=== PATIENT | male | born 1965 | race Caucasian/White ===

== ENCOUNTER 2024-01-11 13:05 | Inpatient (IN) | payer OTHER ==
[~2024-01-11] VITALS: Ht 172.7 cm; Wt 79.4 kg
[2024-01-14 16:35] VITALS: BP 142/83; PULSE 63; RESP 18; TEMP 98.3
[2024-01-14 19:39] LABS: APPEARANCE,URINE CLEAR (CLEAR); BILIRUBIN,URINE NEGATIVE (NEGATIVE); COLOR,URINE LIGHT YELLOW (YELLOW); GLUCOSE, URINE (UA) NEGATIVE (NEGATIVE); KETONES,URINE NEGATIVE (NEGATIVE); LEUKOCYTE ESTERASE ,URINE NEGATIVE (NEGATIVE); NITRATE,URINE NEGATIVE (NEGATIVE); OCCULT BLOOD,URINE NEGATIVE (NEGATIVE); PH,URINE 6.5 (5.0-8.0); PROTEIN,URINE NEGATIVE (NEGATIVE); SPECIFIC GRAVITIY, URINE 1.014 (1.003-1.030); UROBILINOGEN,URINE <=1.0 mg/dL (<=1.0)
[2024-01-14 20:04] LABS: BACTERIA,URINE None Seen /HPF (None Seen); RBC,URINE None Seen /HPF (0-2); WBC,URINE None Seen /HPF (0-5)
[2024-01-14 21:00] VITALS: BP 118/81; PULSE 66; RESP 18; TEMP 98; O2SAT 97
[2024-01-14] MEDS: -LIDODERM PATCH NOTE- MISC SCH (21:00)
[2024-01-14] MEDS: GABAPENTIN 300 MG CAPSULE PO SCH (21:54)
[2024-01-14] MEDS: TraZODone HCL 50 MG TABLET PO SCH (21:54)
[2024-01-14] MEDS: SENNOSIDES 8.6 MG TABLET PO SCH (21:54)
[2024-01-14] MEDS: 0.9% SODIUM CHLORIDE 10 ML SYRINGE IVP SCH (21:54)
[2024-01-14] MEDS: VANCOMYCIN 1GM/WATER(PEG/NADA) 200 ML IV SCH (21:54)
[2024-01-14] MEDS: TAMSULOSIN HCL 0.4 MG CAPSULE PO SCH (21:54)
[2024-01-14] MEDS: DOCUSATE SODIUM 100 MG CAPSULE PO SCH (21:55)
[2024-01-14] MEDS: ETHYL ALCOHOL 62% ANTISEPTIC NASAL SANITIZER 0.6 ML AMPUL NASAL SCH (21:55)
[2024-01-14] MEDS: CHLORHEXIDINE GLUCONATE 4% 118 ML TOPICAL LIQUID TP SCH (21:55)
[2024-01-15] MEDS: ACETAMINOPHEN 325 MG TABLET PO SCH (00:31)
[2024-01-15 00:48] VITALS: O2SAT 97
[2024-01-15 06:49] LABS: BASOPHILS % (AUTO) 0.8 % (0.0-2.0); EOSINOPHILS % (AUTO) 4.3 % (1.0-6.0); HEMATOCRIT 36.9 % (41-53); HEMOGLOBIN 12.3 g/dL (13.5-17.5); LYMPHOCYTES % (AUTO) 42.1 % (22.0-44.0); MEAN CORPUSCULAR HGB CONC 33.4 G/dL (31.0-37.0); MEAN CORPUSCULAR VOLUME 93 fL (80-100); MONOCYTES # (AUTO) 0.4 K/uL (0.1-1.0); MONOCYTES % (AUTO) 8.9 % (2.0-9.0); NEUTROPHILS # (AUTO) 2.1 K/uL (1.8-7.7); NEUTROPHILS % (AUTO) 43.9 % (40.0-70.0); PLATELET COUNT (AUTO) 261 K/uL (150-450); RED BLOOD CELL COUNT(AUTO) 3.97 MIL/uL (4.50-5.90); WHITE BLOOD COUNT (AUTO) 4.8 K/uL (4.5-11.0)
[2024-01-15 07:08] LABS: ALANINE AMINOTRANSFERASE 21 U/L (12-78); ALBUMIN 2.9 g/dL (3.4-5.0); ALKALINE PHOSPHATASE 107 U/L (46-116); ANION GAP 9 mmol/L (8-16); ASPARTATE AMINOTRANSFERASE 20 U/L (15-37); BILIRUBIN,TOTAL 0.6 mg/dL (0.1-1.0); CALCIUM, TOTAL 9.6 mg/dL (8.8-10.5); CARBON DIOXIDE 26 mmol/L (22-29); CHLORIDE 104 mmol/L (98-107); CREATININE 0.68 mg/dL (0.60-1.30); GLOMERULAR FILTR. RATE CALC > 60 mL/min (>60); GLUCOSE,RANDOM 97 mg/dL (70-110); POTASSIUM 3.8 mmol/L (3.5-5.1); SODIUM SERUM 139 mmol/L (136-145); TOTAL PROTEIN, SERUM 7.5 g/dL (6.4-8.2); UREA NITROGEN, BLOOD 14 mg/dL (7-18)
[2024-01-15 07:50] LABS: GLUCOMETER DEV NAME(LOC) 2WR.1D; GLUCOSE,POINT OF CARE 97 MG/DL (70-110)
[2024-01-15] MEDS: MULTIVITAMINS WITH MINERALS, THERAPEUTIC TABLET PO SCH (08:03)
[2024-01-15] MEDS: ENOXAPARIN SODIUM 40 MG/0.4 ML PF SYRINGE SQ SCH (08:03)
[2024-01-15] MEDS: LOSARTAN POTASSIUM 25 MG TABLET PO SCH (08:04)
[2024-01-15] MEDS: MetFORMIN HCL 500 MG TABLET PO SCH (08:04)
[2024-01-15] MEDS: VITAMIN E 200 UNIT PO SCH (08:04)
[2024-01-15] MEDS: ZINC SULFATE 220 MG CAPSULE PO SCH (08:04)
[2024-01-15 08:05] VITALS: BP 122/77; PULSE 54; RESP 19; TEMP 98.2; O2SAT 97
[2024-01-15] MEDS: POLYETHYLENE GLYCOL 3350 17 GM PACKET PO SCH (08:07)
[2024-01-15] MEDS: LIDOCAINE 5% TRANSDERMAL PATCH TD SCH (08:14)
[2024-01-15 09:41] VITALS: O2SAT 97
[2024-01-15 17:46] LABS: GLUCOMETER DEV NAME(LOC) 2WR.2B; GLUCOSE,POINT OF CARE 95 MG/DL (70-110)
[2024-01-15 20:00] VITALS: BP 132/86; PULSE 58; RESP 18; TEMP 98.1; O2SAT 98
[2024-01-15] MEDS: MELATONIN 5 MG TABLET PO PRN (20:54)
[2024-01-15 21:47] VITALS: O2SAT 98
[2024-01-16] MEDS ORDERED: METF-1211 PO (05:42)
[2024-01-16] MEDS ORDERED: DOCU-385 PO (05:44)
[2024-01-16] MEDS ORDERED: LOSA-381 PO (05:45)
[2024-01-16] MEDS ORDERED: [UNRECOGNIZED DRUG - CODE] PO (06:09)
[2024-01-16] MEDS ORDERED: GABA-1181 PO (06:09)
[2024-01-16] MEDS ORDERED: ZINC50CA3 PO (06:09)
[2024-01-16] MEDS ORDERED: MULT-248 PO (06:09)
[2024-01-16 06:56] LABS: GLUCOMETER DEV NAME(LOC) 2WR.1D; GLUCOSE,POINT OF CARE 87 MG/DL (70-110)
[2024-01-16 08:00] VITALS: BP 129/88; PULSE 62; RESP 18; TEMP 98; O2SAT 98
[2024-01-16 08:15] LABS: ANION GAP 8 mmol/L (8-16); CALCIUM, TOTAL 9.9 mg/dL (8.8-10.5); CARBON DIOXIDE 26 mmol/L (22-29); CHLORIDE 104 mmol/L (98-107); CREATININE 0.63 mg/dL (0.60-1.30); GLOMERULAR FILTR. RATE CALC > 60 mL/min (>60); GLUCOSE,RANDOM 99 mg/dL (70-110); SODIUM SERUM 138 mmol/L (136-145); UREA NITROGEN, BLOOD 11 mg/dL (7-18); VANCOMYCIN,RANDOM 17.5 mcg/mL (25.0-50.0)
[2024-01-16 17:16] LABS: GLUCOMETER DEV NAME(LOC) 2WR.1D; GLUCOSE,POINT OF CARE 76 MG/DL (70-110)
[2024-01-16 20:00] VITALS: BP 136/76; PULSE 55; RESP 18; TEMP 97.7; O2SAT 98
[2024-01-17 08:00] VITALS: BP 123/78; PULSE 56; RESP 18; TEMP 97.8; O2SAT 98
[2024-01-17 08:08] LABS: ANION GAP 7 mmol/L (8-16); CALCIUM, TOTAL 9.8 mg/dL (8.8-10.5); CARBON DIOXIDE 27 mmol/L (22-29); CHLORIDE 104 mmol/L (98-107); CREATININE 0.66 mg/dL (0.60-1.30); GLOMERULAR FILTR. RATE CALC > 60 mL/min (>60); GLUCOSE,RANDOM 97 mg/dL (70-110); POTASSIUM 3.9 mmol/L (3.5-5.1); SODIUM SERUM 138 mmol/L (136-145); UREA NITROGEN, BLOOD 13 mg/dL (7-18)
[2024-01-17 20:00] VITALS: O2SAT 98
[2024-01-17 23:50] VITALS: TEMP 98
[2024-01-18 07:51] LABS: ANION GAP 7 mmol/L (8-16); CALCIUM, TOTAL 9.8 mg/dL (8.8-10.5); CARBON DIOXIDE 29 mmol/L (22-29); CHLORIDE 104 mmol/L (98-107); CREATININE 0.66 mg/dL (0.60-1.30); GLOMERULAR FILTR. RATE CALC > 60 mL/min (>60); GLUCOSE,RANDOM 100 mg/dL (70-110); SODIUM SERUM 140 mmol/L (136-145); UREA NITROGEN, BLOOD 15 mg/dL (7-18); VANCOMYCIN,RANDOM 15.5 mcg/mL (25.0-50.0)
[2024-01-18 08:00] VITALS: BP 117/77; PULSE 61; RESP 18; TEMP 97.6; O2SAT 98
[2024-01-18 10:08] LABS: BASOPHILS % (AUTO) 0.5 % (0.0-2.0); EOSINOPHILS % (AUTO) 4.2 % (1.0-6.0); HEMATOCRIT 39.9 % (41-53); HEMOGLOBIN 12.8 g/dL (13.5-17.5); LYMPHOCYTES # (AUTO) 1.9 K/uL (1.0-4.8); LYMPHOCYTES % (AUTO) 38.8 % (22.0-44.0); MEAN CORPUSCULAR HEMOGLOBIN 30.1 pg (26.0-34.0); MEAN CORPUSCULAR HGB CONC 32.1 G/dL (31.0-37.0); MEAN CORPUSCULAR VOLUME 94 fL (80-100); MONOCYTES # (AUTO) 0.4 K/uL (0.1-1.0); MONOCYTES % (AUTO) 8.9 % (2.0-9.0); NEUTROPHILS # (AUTO) 2.3 K/uL (1.8-7.7); NEUTROPHILS % (AUTO) 47.6 % (40.0-70.0); PLATELET COUNT (AUTO) 253 K/uL (150-450); RED BLOOD CELL COUNT(AUTO) 4.26 MIL/uL (4.50-5.90); WHITE BLOOD COUNT (AUTO) 4.9 K/uL (4.5-11.0)
[2024-01-18 10:10] LABS: ERYTHROCYTE SEDIMENTATION RATE 49 MM/HR (0-20)
[2024-01-18 10:18] LABS: ALANINE AMINOTRANSFERASE 21 U/L (12-78); ALBUMIN 3.1 g/dL (3.4-5.0); ALKALINE PHOSPHATASE 113 U/L (46-116); ASPARTATE AMINOTRANSFERASE 19 U/L (15-37); BILIRUBIN,TOTAL 0.6 mg/dL (0.1-1.0); TOTAL PROTEIN, SERUM 7.8 g/dL (6.4-8.2)
[2024-01-18 20:12] VITALS: BP 144/81; PULSE 53; RESP 18; TEMP 97.9; O2SAT 99
[2024-01-18] MEDS ORDERED: SODIUM CHLORIDE 0.9% 250 ML IV ONE (20:26)
[2024-01-18 21:02] VITALS: O2SAT 99
[2024-01-19] MEDS: PNEUMOCOCCAL VACCINE POLYVALENT 0.5 ML SYRINGE [PPSV23] IM. ONE (06:00)
[2024-01-19 08:00] VITALS: BP 122/81; PULSE 58; RESP 18; TEMP 97.8; O2SAT 97
[2024-01-19 20:01] VITALS: BP 127/82; PULSE 63; RESP 18; TEMP 97.8; O2SAT 97
[2024-01-19] MEDS: OxyCODONE HCL 5 MG IR TABLET PO PRN (20:25)
[2024-01-20 00:50] VITALS: O2SAT 97
[2024-01-20 08:00] VITALS: BP 94/76; PULSE 88; RESP 18; TEMP 98.4; O2SAT 96
[2024-01-20 08:45] VITALS: BP 103/69; PULSE 84; RESP 18
[2024-01-20 20:00] VITALS: BP 122/75; PULSE 64; RESP 18; TEMP 98; O2SAT 98
[2024-01-21 06:54] LABS: BASOPHILS % (AUTO) 0.9 % (0.0-2.0); EOSINOPHILS % (AUTO) 2.1 % (1.0-6.0); HEMATOCRIT 38.4 % (41-53); HEMOGLOBIN 12.9 g/dL (13.5-17.5); LYMPHOCYTES # (AUTO) 1.4 K/uL (1.0-4.8); LYMPHOCYTES % (AUTO) 17.3 % (22.0-44.0); MEAN CORPUSCULAR HEMOGLOBIN 31.2 pg (26.0-34.0); MEAN CORPUSCULAR HGB CONC 33.5 G/dL (31.0-37.0); MEAN CORPUSCULAR VOLUME 93 fL (80-100); MONOCYTES # (AUTO) 0.8 K/uL (0.1-1.0); MONOCYTES % (AUTO) 9.8 % (2.0-9.0); NEUTROPHILS # (AUTO) 5.5 K/uL (1.8-7.7); NEUTROPHILS % (AUTO) 69.9 % (40.0-70.0); PLATELET COUNT (AUTO) 203 K/uL (150-450); RED BLOOD CELL COUNT(AUTO) 4.13 MIL/uL (4.50-5.90); RED CELL DISTRIBUTION WIDTH 15.9 % (11.5-14.5); WHITE BLOOD COUNT (AUTO) 7.9 K/uL (4.5-11.0)
[2024-01-21 07:17] LABS: ANION GAP 9 mmol/L (8-16); CALCIUM, TOTAL 9.4 mg/dL (8.8-10.5); CARBON DIOXIDE 25 mmol/L (22-29); CHLORIDE 103 mmol/L (98-107); CREATININE 0.61 mg/dL (0.60-1.30); GLOMERULAR FILTR. RATE CALC > 60 mL/min (>60); GLUCOSE,RANDOM 107 mg/dL (70-110); POTASSIUM 3.8 mmol/L (3.5-5.1); SODIUM SERUM 137 mmol/L (136-145); UREA NITROGEN, BLOOD 14 mg/dL (7-18); VANCOMYCIN,RANDOM 13.2 mcg/mL (25.0-50.0)
[2024-01-21 08:00] VITALS: BP 115/83; PULSE 78; RESP 19; TEMP 98.3; O2SAT 98
[2024-01-21 16:49] VITALS: BP 119/75; PULSE 90; RESP 18; TEMP 99.4; O2SAT 97
[2024-01-21 18:45] VITALS: TEMP 98.8
[2024-01-21 20:00] VITALS: BP 115/79; PULSE 88; RESP 18; TEMP 99.9; O2SAT 96
[2024-01-21 23:48] VITALS: TEMP 100.3
[2024-01-22 03:02] VITALS: TEMP 98
[2024-01-22 09:00] VITALS: BP 112/64; PULSE 76; RESP 18; TEMP 98.1; O2SAT 98
[2024-01-22 09:35] LABS: BASOPHILS % (AUTO) 0.3 % (0.0-2.0); EOSINOPHILS % (AUTO) 1.7 % (1.0-6.0); HEMATOCRIT 38.8 % (41-53); HEMOGLOBIN 12.8 g/dL (13.5-17.5); LYMPHOCYTES # (AUTO) 1.7 K/uL (1.0-4.8); LYMPHOCYTES % (AUTO) 25.2 % (22.0-44.0); MEAN CORPUSCULAR HEMOGLOBIN 30.4 pg (26.0-34.0); MEAN CORPUSCULAR HGB CONC 33.1 G/dL (31.0-37.0); MEAN CORPUSCULAR VOLUME 92 fL (80-100); MONOCYTES # (AUTO) 0.8 K/uL (0.1-1.0); MONOCYTES % (AUTO) 11.2 % (2.0-9.0); NEUTROPHILS # (AUTO) 4.2 K/uL (1.8-7.7); NEUTROPHILS % (AUTO) 61.6 % (40.0-70.0); PLATELET COUNT (AUTO) 213 K/uL (150-450); RED BLOOD CELL COUNT(AUTO) 4.22 MIL/uL (4.50-5.90); RED CELL DISTRIBUTION WIDTH 15.6 % (11.5-14.5); WHITE BLOOD COUNT (AUTO) 6.9 K/uL (4.5-11.0)
[2024-01-22 09:45] LABS: ANION GAP 9 mmol/L (8-16); CALCIUM, TOTAL 9.4 mg/dL (8.8-10.5); CARBON DIOXIDE 25 mmol/L (22-29); CHLORIDE 100 mmol/L (98-107); CREATININE 0.75 mg/dL (0.60-1.30); GLOMERULAR FILTR. RATE CALC > 60 mL/min (>60); GLUCOSE,RANDOM 155 mg/dL (70-110); POTASSIUM 3.7 mmol/L (3.5-5.1); SODIUM SERUM 134 mmol/L (136-145); UREA NITROGEN, BLOOD 10 mg/dL (7-18)
[2024-01-22 10:33] LABS: APPEARANCE,URINE CLEAR (CLEAR); BILIRUBIN,URINE NEGATIVE (NEGATIVE); COLOR,URINE YELLOW (YELLOW); GLUCOSE, URINE (UA) NEGATIVE (NEGATIVE); KETONES,URINE TRACE mg/dL (NEGATIVE); LEUKOCYTE ESTERASE ,URINE LARGE (NEGATIVE); NITRATE,URINE NEGATIVE (NEGATIVE); OCCULT BLOOD,URINE SMALL (NEGATIVE); PH,URINE 5.5 (5.0-8.0); PROTEIN,URINE 30-70 mg/dL (NEGATIVE); SPECIFIC GRAVITIY, URINE 1.032 (1.003-1.030); UROBILINOGEN,URINE <=1.0 mg/dL (<=1.0)
[2024-01-22 10:45] LABS: BACTERIA,URINE Moderate /HPF (None Seen)
[2024-01-22 12:36] VITALS: O2SAT 98
[2024-01-22] MEDS: ACYCLOVIR 5% 15 GM OINTMENT TP SCH (16:34)
[2024-01-22] MEDS: LEVOFLOXACIN 750 MG TABLET PO SCH (16:35)
[2024-01-22] MEDS: ACYCLOVIR 200 MG CAPSULE PO SCH (20:50)
[2024-01-22 23:00] VITALS: BP 114/76; PULSE 81; RESP 18; TEMP 98.2; O2SAT 98
[2024-01-23 01:35] VITALS: O2SAT 98
[2024-01-23 08:05] VITALS: BP 122/77; PULSE 72; RESP 18; TEMP 98.3; O2SAT 98
[2024-01-23 20:19] VITALS: BP 115/72; PULSE 65; RESP 19; TEMP 97.7; O2SAT 96
[2024-01-23 22:24] VITALS: O2SAT 96
[2024-01-24 08:02] VITALS: BP 122/78; PULSE 62; RESP 18; TEMP 97.9; O2SAT 97
[2024-01-24] MEDS: CefTRIAXone 1 GM/DEXTROSE 50 ML IV SCH (08:17)
[2024-01-24 21:00] VITALS: BP 132/75; PULSE 63; RESP 18; TEMP 97.7; O2SAT 97
[2024-01-24 23:39] VITALS: O2SAT 98
[2024-01-25 08:00] VITALS: BP 135/85; PULSE 66; RESP 18; TEMP 97.9; O2SAT 98
[2024-01-25 20:00] VITALS: BP 124/80; PULSE 60; RESP 18; TEMP 97.8; O2SAT 97
[2024-01-25] MEDS: 0.9% SODIUM CHLORIDE 10 ML SYRINGE IVP SCH (20:29)
[2024-01-26 08:05] VITALS: BP 126/80; PULSE 64; RESP 19; TEMP 98.7; O2SAT 97
[2024-01-26] MEDS ORDERED: IOHEXOL 350 MG/ML 100 ML VIAL ONE (10:22)
[2024-01-26] MEDS ORDERED: SODIUM CHLORIDE 0.9% 100 ML ONE (10:22)
[2024-01-26 20:00] VITALS: BP 122/71; PULSE 61; RESP 18; TEMP 97.5; O2SAT 97
[2024-01-27] MEDS ORDERED: TAMS0.4C94 PO (05:03)
[2024-01-27] MEDS ORDERED: TRAZ-252 PO (05:04)
[2024-01-27] MEDS ORDERED: LIDO700A15 TP (05:06)
[2024-01-27 08:00] VITALS: BP 136/87; PULSE 66; RESP 16; TEMP 98.6; O2SAT 97
[2024-01-27 09:00] VITALS: BP 129/87; PULSE 78; RESP 19; TEMP 98.1; O2SAT 96
[2024-01-27 20:07] VITALS: BP 142/94; PULSE 75; RESP 19; TEMP 98.1; O2SAT 98
[2024-01-27] MEDS: TAMSULOSIN HCL 0.4 MG CAPSULE PO SCH (20:10)
[2024-01-27 21:32] VITALS: O2SAT 98
[2024-01-28] MEDS ORDERED: ACYC-138 PO (00:58)
[2024-01-28] MEDS ORDERED: CEFP200T12 PO ×2 (01:01→09:53)
[2024-01-28 08:00] VITALS: BP 109/75; PULSE 67; RESP 18; TEMP 98.1; O2SAT 98
[2024-01-28] MEDS ORDERED: TAMS0.4C94 PO (09:57)
[2024-01-28] MEDS ORDERED: POLY17PO62 PO (09:57)
[2024-01-28] MEDS ORDERED: GABA-1181 PO (09:57)
[2024-01-28] MEDS ORDERED: METF-1211 PO (09:57)
[2024-01-28] MEDS ORDERED: ZINC50CA3 PO (09:57)
[2024-01-28] MEDS ORDERED: LOSA-417 PO (09:57)
[2024-01-28] MEDS ORDERED: ACYC200C24 PO (09:57)
[2024-01-28] MEDS ORDERED: TRAZ-252 PO (09:57)
[2024-01-28] MEDS ORDERED: [UNRECOGNIZED DRUG - CODE] PO (09:57)
[2024-01-28] MEDS ORDERED: MULT-1303 PO (09:57)
[2024-01-28] MEDS ORDERED: LIDO700A30 TD (09:57)
[2024-01-28] MEDS ORDERED: ACET325T51 PO (09:57)
== END 2024-01-28 11:30 | disposition home or self-care (01) | DRG 347 ==
LOC: 4E 01-14 16:35
PROVIDERS: ADMIT Physical Medicine & Rehabilitation; ATTEND Physical Medicine & Rehabilitation
DX: M46.42 Discitis, unspecified, cervical region (principal); S14.154A Other incomplete lesion at C4 level of cervical spinal cord, initial encounter; R78.81 Bacteremia; E46 Unspecified protein-calorie malnutrition; M46.22 Osteomyelitis of vertebra, cervical region; N12 Tubulo-interstitial nephritis, not specified as acute or chronic; D63.8 Anemia in other chronic diseases classified elsewhere; E11.69 Type 2 diabetes mellitus with other specified complication; Z74.09 Other reduced mobility; B00.9 Herpesviral infection, unspecified; B95.62 Methicillin resistant Staphylococcus aureus infection as the cause of diseases classified elsewhere; R26.9 Unspecified abnormalities of gait and mobility; I10 Essential (primary) hypertension; G62.9 Polyneuropathy, unspecified; R33.9 Retention of urine, unspecified; M25.551 Pain in right hip; K13.0 Diseases of lips; Z22.7 Latent tuberculosis; M25.511 Pain in right shoulder; R79.89 Other specified abnormal findings of blood chemistry; X58.XXXA Exposure to other specified factors, initial encounter; Y93.89 Activity, other specified; Y92.89 Other specified places as the place of occurrence of the external cause; Y99.8 Other external cause status; Z79.84 Long term (current) use of oral hypoglycemic drugs; Z68.26 Body mass index [BMI] 26.0-26.9, adult
CPT/HCPCS: 72126; 80048; 80053; 80202; 81001; 82962; 85025; 85651; 86140; 87040; 87081; 87086; 87186; 97110; 97112; 97116; 97162; 97167; 97530; 97535; 99285; 99366; J0696; J1650; J7050; Q9967